=== PATIENT | male | born 1965 | race Caucasian/White ===

== ENCOUNTER 2023-01-13 00:50 | Day surgery (SDC) | payer BC, SELFPAY ==
[2022-12-31 15:39] VITALS: BMI 33.9
--- NOTE | 2023-01-12 13:35 | PM.HPGS ---
History of Present Illness History of Present Illness Consent: Risks, benefits, and alternatives have been discussed and questions answered. Patient agrees to proceed with procedure. Chief complaint: abnormal CT of abdomen and pelvis Narrative: Manuel Cardenas is a 57 year old male Who had a CT scan which showed, among other things circumferential wall thickening in the distal esophagus.? He does get heartburn from time to time.? When he does he uses Tums which gives him fairly good relief.? He has never had to take a PPI chronically.? He denies dysphagia.? His weight is stable he denies nausea or vomiting.? He has no abdominal pain Review of Systems Review of Systems: All systems reviewed & are unremarkable except as noted in HPI and below PMFSH Past Medical History Medical History Hypertension Hypogonadism Impingement syndrome of left shoulder Insomnia Lateral epicondylitis, left elbow Rotator cuff arthropathy Type 2 diabetes mellitus Social History Social History Smoking status: Never smoker Alcohol intake: current Substance use: never Substance use type: does not use Living arrangements: with family Spiritual care concerns: No Meds Home Medications and Allergies Home Medications Medication Instructions Recorded Confirmed Type atorvastatin 20 mg tablet 20 mg PO DAILY 12/17/22 01/13/23 History metformin 500 mg tablet 500 mg PO DAILY 12/17/22 01/13/23 History amlodipine 5 mg tablet 5 mg PO DAILY 12/31/22 01/13/23 History valsartan 160 mg tablet 160 mg PO DAILY 01/13/23 01/13/23 History Allergies Allergy/AdvReac Type Severity Reaction Status Date / Time olmesartan Allergy Intermediate Hives Verified 01/13/23 09:07 amoxicillin [From Augmentin] Allergy Mild Rash Verified 01/13/23 09:07 clavulanic acid Allergy Mild Rash Verified 01/13/23 09:07 [From Augmentin] losartan Allergy Mild Hives Verified 01/13/23 09:07 Exam Const: General: alert Orientation/consciousness: patient oriented x3 Resp: Auscultation: clear to auscultation bilaterally Cardio: Rhythm: regular rhythm GI: GI Palp: Yes Soft to palpation and No Tenderness to palpation present (GI) Neuro: General: patient oriented x3 Assessment and Plan Assessment and plan (1) Abnormal CT scan, gastrointestinal tract: Code(s): R93.3 - Abnormal findings on diagnostic imaging of other parts of digestive tract Status: Acute Assessment and Plan: EGD with possible biopsy or dilatation or cautery.
[2023-01-13 09:12] VITALS: BP 144/70; PULSE 64; RESP 20; TEMP 36.3; O2SAT 99
[2023-01-13 09:20] LABS: Glucose Point of Care 145 mg/dl (65-105)
[2023-01-13] MEDS: LACTATED RINGERS 1,000 ML 150 ML IV CONT (09:25)
--- NOTE | 2023-01-13 09:36 | P.PNAN_ITS ---
Anes - Initial Pre Proc Eval Procedure: Operation Date: 01/13/23 10:00 Proposed Procedures p Esophagogastroduodenoscopy - Omer Naidu MD Date/Time: 01/13/23 09:36 Surgeon: Omer Naidu MD Pre Op Diagnosis: abnormal CT of abdomen and pelvis Patient Data Age: 57 Gender: M Height: 1.65 m Weight: 92.4 kg Last Vital Signs Temp 97.4 F L 01/13/23 09:12 Pulse 64 01/13/23 09:12 Resp 20 01/13/23 09:12 BP 144/70 H 01/13/23 09:12 Pulse Ox 99 01/13/23 09:12 O2 Del Method Room Air 01/13/23 09:12 Allergies Allergy/AdvReac Type Severity Reaction Status Date / Time olmesartan Allergy Intermediate Hives Verified 01/13/23 09:07 amoxicillin [From Augmentin] Allergy Mild Rash Verified 01/13/23 09:07 clavulanic acid Allergy Mild Rash Verified 01/13/23 09:07 [From Augmentin] losartan Allergy Mild Hives Verified 01/13/23 09:07 Home Medications Medication Instructions Recorded Confirmed Type atorvastatin 20 mg tablet 20 mg PO DAILY 12/17/22 01/13/23 History metformin 500 mg tablet 500 mg PO DAILY 12/17/22 01/13/23 History amlodipine 5 mg tablet 5 mg PO DAILY 12/31/22 01/13/23 History valsartan 160 mg tablet 160 mg PO DAILY 01/13/23 01/13/23 History Laboratory Tests 01/13/23 09:18 POC Capillary Glucose 145 mg/dl H mg/dl (65-105) Patient hx anesthesia problems: none Family hx anesthesia problems: none Results Review: All pre-operative results and documents have been reviewed as part of the pre- operative evaluation. [facility] Past Medical History Medical History Hypertension Hypogonadism Impingement syndrome of left shoulder Insomnia Lateral epicondylitis, left elbow Rotator cuff arthropathy Type 2 diabetes mellitus Social History Social History Smoking status: Never smoker Alcohol intake: current Substance use: never Substance use type: does not use Living arrangements: with family Gender identity (if verbalized by the patient): Male Sexual Orientation (if Verbalized by the Patient): Straight or Heterosexual Spiritual care concerns: No Anes - Eval Final PreProcedure Day of Procedure 01/13/23 09:36 Patient weight: obese Heart: regular rate and rhythm Lungs: clear to auscultation Airway: Mallampati scale class II Neurological: alert and oriented Last oral intake: >/= 8 hours ASA classification: III Emergent: no Anesthetic plan: proceed Anesthesia type and monitoring: general GIVS and standard monitoring Results Review: All pre-operative results and documents have been reviewed as part of the pre- operative evaluation. Informed Consent: The patient's anesthetic plan and its attendant risks and benefits were discussed with the patient/family/POA. Questions were solicited and answers provided to the satisfaction of the patient/family/POA.
--- NOTE | 2023-01-13 09:51 | WPDANESEPPF ---
Anes - Initial Pre Proc Eval Procedure: Operation Date: 01/13/23 10:00 Proposed Procedures p Esophagogastroduodenoscopy - Omer Naidu MD Date/Time: 01/13/23 09:51 Surgeon: Omer Naidu MD Pre Op Diagnosis: abnormal CT of abdomen and pelvis Patient Data Age: 57 Gender: M Height: 1.65 m Weight: 92.4 kg Last Vital Signs Temp 97.4 F L 01/13/23 09:12 Pulse 64 01/13/23 09:12 Resp 20 01/13/23 09:12 BP 144/70 H 01/13/23 09:12 Pulse Ox 99 01/13/23 09:12 O2 Del Method Room Air 01/13/23 09:12 Allergies Allergy/AdvReac Type Severity Reaction Status Date / Time olmesartan Allergy Intermediate Hives Verified 01/13/23 09:07 amoxicillin [From Augmentin] Allergy Mild Rash Verified 01/13/23 09:07 clavulanic acid Allergy Mild Rash Verified 01/13/23 09:07 [From Augmentin] losartan Allergy Mild Hives Verified 01/13/23 09:07 Home Medications Medication Instructions Recorded Confirmed Type atorvastatin 20 mg tablet 20 mg PO DAILY 12/17/22 01/13/23 History metformin 500 mg tablet 500 mg PO DAILY 12/17/22 01/13/23 History amlodipine 5 mg tablet 5 mg PO DAILY 12/31/22 01/13/23 History valsartan 160 mg tablet 160 mg PO DAILY 01/13/23 01/13/23 History Laboratory Tests 01/13/23 09:18 POC Capillary Glucose 145 mg/dl H mg/dl (65-105) Patient hx anesthesia problems: none Family hx anesthesia problems: none Results Review: All pre-operative results and documents have been reviewed as part of the pre-operative evaluation. [facility] Past Medical History Medical History Hypertension Hypogonadism Impingement syndrome of left shoulder Insomnia Lateral epicondylitis, left elbow Rotator cuff arthropathy Type 2 diabetes mellitus Social History Social History Smoking status: Never smoker Alcohol intake: current Substance use: never Substance use type: does not use Living arrangements: with family Gender identity (if verbalized by the patient): Male Sexual Orientation (if Verbalized by the Patient): Straight or Heterosexual Spiritual care concerns: No Anes - Eval Final PreProcedure Day of Procedure 01/13/23 09:51 Patient weight: obese Heart: regular rate and rhythm Lungs: clear to auscultation Airway: Mallampati scale class II Neurological: alert and oriented Last oral intake: >/= 8 hours ASA classification: III Emergent: no Anesthetic plan: proceed Anesthesia type and monitoring: general GIVS and standard monitoring Results Review: All pre-operative results and documents have been reviewed as part of the pre-operative evaluation. Informed Consent: The patient's anesthetic plan and its attendant risks and benefits were discussed with the patient/family/POA. Questions were solicited and answers provided to the satisfaction of the patient/family/POA.
[2023-01-13 10:01] VITALS: BP 92/76; PULSE 74; RESP 25; O2SAT 92
[2023-01-13 10:11] VITALS: BP 106/73; PULSE 72; RESP 25; O2SAT 93
[2023-01-13 10:22] VITALS: BP 111/76; PULSE 65; RESP 19; O2SAT 96
== END 2023-01-13 10:25 | disposition home or self-care (01) ==
PROVIDERS: PCP Physician Assistant Medical; Visit Provider Internal Medicine Gastroenterology
PROC: 0DJ08ZZ Inspection of Upper Intestinal Tract, Via Natural or Artificial Opening Endoscopic (ICD-10-PCS; CPT 43235; principal; 2023-01-13 10:00)
DX: K22.70 Barrett's esophagus without dysplasia (principal); K29.70 Gastritis, unspecified, without bleeding; K44.9 Diaphragmatic hernia without obstruction or gangrene; I10 Essential (primary) hypertension; E11.9 Type 2 diabetes mellitus without complications; E66.9 Obesity, unspecified; Z68.33 Body mass index [BMI] 33.0-33.9, adult; Z79.84 Long term (current) use of oral hypoglycemic drugs
CPT/HCPCS: 43239; 82948; 87081; 88305; J2704; J7120